=== PATIENT | female | born 1995 | race Caucasian/White ===

== ENCOUNTER → 2021-06-21 08:53 | Outpatient (CLI) | payer BC, SELFPAY ==
[2021-06-21 10:49] LABS: Add Manual Diff / Slide Review NO; Basophils Absolute Auto 0 /uL (0-100); Basophils Percent Auto 0.7 % (0-2); Eosinophils Absolute Auto 500 /uL (0-450); Eosinophils Percent Auto 6.5 % (2-4); Hematocrit 33.1 % (36-46); Hemoglobin 11.5 g/dL (12.0-16.0); Lymphocytes Absolute Auto 1900 /uL (1100-4500); Lymphocytes Percent Auto 26.7 % (25-40); Mean Corpuscular HGB Conc 34.6 % (30-36); Mean Corpuscular Hemoglobin 30.7 PG (26-34); Mean Corpuscular Volume 88.6 fL (80-100); Monocytes Absolute Auto 400 /uL (0-900); Monocytes Percent Auto 5.3 % (3-14); Neutrophils Absolute Auto 4300 /uL (1500-7000); Neutrophils Percent Auto 60.8 % (50-75); Platelet Count 195 X10^3/uL (150-400); Red Blood Cell Count 3.73 X10^6/uL (4.0-5.2); Red Cell Distribution Width 12.6 % (11.6-14.8)
[2021-06-21 20:31] LABS: Appearance Urine UA CLEAR; Bilirubin Urine UA NEGATIVE (NEGATIVE); Color Urine UA YELLOW; Glucose Urine UA NEGATIVE (Negative); Ketones Urine UA NEGATIVE (NEGATIVE); Leukocyte Esterase Urine UA NEGATIVE (NEGATIVE); Nitrite Urine UA NEGATIVE (Negative); Occult Blood Urine UA NEGATIVE (Negative); Protein Urine UA NEGATIVE (Negative); Urobilinogen Urine UA 0.2 E.U./dL (0.2)
[2021-06-22 08:13] LABS: RPR Screen Non Reactive (Non Reactive); Varicella IgG Antibody 453 index (Immune >165)
[2021-06-22 16:12] LABS: Hepatitis B Surface Antigen NEGATIVE s/c (NEGATIVE); Rubella Antibody IgG 43.9 IU/mL (>15)
[2021-06-22 16:27] LABS: HIV 1 & 2 Ab/Ag 4th Gen Combo NEGATIVE (NEGATIVE); Hep C Virus Ab w/Reflex Quant NEGATIVE s/c (NEGATIVE)
== END ==
PROVIDERS: Obstetrics & Gynecology; Referring Provider Obstetrics & Gynecology; Visit Provider Obstetrics & Gynecology
DX: Z34.91 Encounter for supervision of normal pregnancy, unspecified, first trimester (principal)
CPT/HCPCS: 36415; 80055; 81003; 86787; 86803; 86850; 86900; 86901; 87086; 87389

== ENCOUNTER → 2021-07-25 11:56 | Outpatient (CLI) | payer BC, SELFPAY ==
--- NOTE | 2021-07-25 11:57 | DI.US.S_ITS ---
PROCEDURE: US OB >= 14 WEEKS FETUS INDICATIONS: 20 Week Anatomy Scan OUTSIDE/PRIOR DATING DATA: First dating scan (date and location): 06/09/2021 Estimated date of delivery (REBA) from first dating scan: 12/04/2021 The calculations are made using the ultrasound REBA of 12/04/2021 TECHNIQUE: Real-time scanning was performed of the fetus, with image documentation and biometric measurements. COMPARISON: [facility] Ultrasound, US, US OB > 14 WEEKS FOLLOW UP, 06/09/2021, 15:02. FINDINGS: General: A single living intrauterine gestation is present. Presentation: Vertex. Placenta: Placental position is posterior. Placental edge is 1.6 cm from the internal cervical os. Amniotic fluid index: 11.9 cm, normal range is 5-24 cm. heart rate: 149 beats per minute. Maternal cervical canal: 4.0 cm long. Normal lower limit is 2.5 cm. biometrics: Biparietal diameter: 4.7 cm, 20 weeks 2 days Head circumference: 18.1 cm, 20 weeks 4 days Abdominal circumference: 14.6 cm, 19 weeks 6 days Femur length: 3.7 cm, 21 weeks 4 days Clinically estimated gestational age: 21 weeks 1 day Composite gestational age from present scan: 20 weeks 4 days Estimated weight and percentile: 369 g Anatomic survey: Neuro: Ventricles are non-dilated at less than 10 mm. Cisterna magna is normal at 3-11 mm. Cerebellum is normal in size and morphology. Nuchal skin fold: Normal at less than 6 mm between 14-21 weeks gestational age. Face: Facial profile not well visualized and there is irregularity along the midline of the upper lip and maxilla which could represent cleft lip/palate. Spine: No evidence for spina bifida. Heart: 4-chambered heart is present, with normal ventricular outflow tracts. Diaphragm: Diaphragm is intact. Stomach: Left-sided stomach is present. Kidneys: No hydronephrosis. Normal is less than 5 mm in 2nd trimester, less than 7 mm in 3rd trimester. Cord: 3-vessel cord has orthotopic insertion. Marginal cord insertion site 1.6 cm from the placental edge. Bladder: Normal in size. Extremities: All 4 extremities identified. Maternal intrauterine device is present and appears to be position within the uterine fundus and incompletely visualized. IMPRESSION: 1. Myers living intrauterine at 20 weeks 4 days based on today's ultrasound. This is concordant with the prior ultrasound. 2. Normal amniotic fluid. Low lying placenta. 3. Probable cleft upper lip. Otherwise normal anatomic survey. 4. IUD at the anterior uterine fundus. We strive to produce accurate, complete, and clear reports of imaging services. To assist us in improving patient care, this report was composed using standard report templates and voice recognition software. Therefore, it may contain abnormal punctuation, insertions and/or omissions. Occasional wrong-word or sound-alike substitutions may occur. Though we review the report and make efforts to correct it, we do recommend that the report be read carefully in proper context to recognize any text inaccuracies. Dictated by: Felix GRAJEDA Interpreted: Yana Lake MD on 07/25/2021 at 14:50 Transcribed by: SHANA on 07/26/2021 at 10:07 Approved by: Crescencio Gross M.D. on 07/26/2021 at 19:58
== END ==
PROVIDERS: Referring Provider Obstetrics & Gynecology; Visit Provider Obstetrics & Gynecology
DX: Z34.82 Encounter for supervision of other normal pregnancy, second trimester (principal); Z3A.20 20 weeks gestation of pregnancy
CPT/HCPCS: 76811

== ENCOUNTER → 2021-09-20 16:19 | Outpatient (CLI) | payer OTHER, BC, SELFPAY ==
[2021-09-20 18:00] LABS: Hematocrit 32.1 % (36-46); Hemoglobin 11.1 g/dL (12.0-16.0)
[2021-09-20 18:15] LABS: GTT (PREG) 1 Hour PP 50gm Dose 128 mg/dL (76-139)
== END ==
PROVIDERS: Referring Provider Obstetrics & Gynecology; Visit Provider Obstetrics & Gynecology
DX: Z34.82 Encounter for supervision of other normal pregnancy, second trimester (principal); Z3A.26 26 weeks gestation of pregnancy
CPT/HCPCS: 36415; 82950; 85014; 85018

== ENCOUNTER → 2021-11-16 11:51 | Outpatient (CLI) | payer OTHER, BC, SELFPAY ==
[2021-11-17 12:56] LABS: Strep Grp B PCR POS for Grp B Strep
== END ==
PROVIDERS: Visit Provider Obstetrics & Gynecology
DX: Z36.85 Encounter for antenatal screening for Streptococcus B (principal); Z3A.36 36 weeks gestation of pregnancy
CPT/HCPCS: 87653

== ENCOUNTER 2021-12-15 22:10 | Emergency (ER) | payer OTHER, BC, SELFPAY ==
[2021-12-15 22:13] VITALS: BP 131/67; PULSE 99; RESP 17; TEMP 37.2; O2SAT 98; BMI 35.0
[2021-12-15 22:56] VITALS: BP 128/70; PULSE 95; RESP 18; O2SAT 99
--- NOTE | 2021-12-15 23:31 | ED_ITS ---
HPI - General Adult General Chief complaint: Fever Stated complaint: Mastitis rt breast Time Seen by Provider: 12/15/21 22:50 Source: patient Mode of arrival: Ambulatory History of Present Illness HPI narrative: Patient is a 26-year-old female. She is 3 weeks . Is pumping breast milk for her child. She does feel like her milk is in. She is having some discomfort with pumping. Over the past 24 hours she has noticed increasing discomfort and now redness to her right breast. She is also getting some bloody discharge in the right nipple. No fevers. No left breast symptoms. Has not tried anything for the symptoms prior to arrival. Related Data Home Medications Medication Instructions Recorded Confirmed omeprazole magnesium 20 mg 20 mg PO DAILY 06/05/21 10/18/21 tablet,delayed release (Prilosec OTC) prenat.vits,fabian,[id number] 1 tab PO DAILY 06/05/21 10/18/21 Previous Rx's Medication Instructions Recorded nystatin-triamcinolone 100,000 1 applic TOPICAL BID #30 g 07/26/21 unit/g-0.1 % topical cream Double Electric Breast Pump 1 ea TOPICAL .prn #1 ea 10/18/21 fluconazole 150 mg tablet 150 mg PO Q3D #2 tab 11/16/21 (Diflucan) cephalexin 500 mg tablet 500 mg PO QID 10 Days #40 tab 12/15/21 Allergies Allergy/AdvReac Type Severity Reaction Status Date / Time No Known Drug Allergies Allergy Verified 10/18/21 16:24 Review of Systems Constitutional Constitutional: Reports as per HPI and Reports system reviewed and no additional complaints, except as documented Integumentary/Breasts Skin/Breast: Reports system reviewed and no additional complaints, except as documented Hematologic/Lymphatic On Anticoagulants: No Patient History Medical History Family History (Updated 06/05/21 @ 12:36 by Angeline Hays RN) Mother No problems noted. 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) current occupational exposures/hazards: No seatbelt use: always water heater temp set < 120 deg: Yes working smoke detector in home: Yes fire extinguisher in home: Yes carbon monox detector in home: Yes firearms in home: Yes do you feel safe at home: Yes Smoking Status: Never smoker alcohol intake: former substance use type: does not use during the past year weight has: remained stable well-balanced diet: daily or most days caffeine: Yes (200 mg only) Type(s) of exercise: regular exercise Smoking Status: Never smoker alcohol intake frequency: 0-2 drinks per day Substance Use Type: does not use Exam Initial Vital Signs Initial Vital Signs: Vital Signs Temperature 98.9 F 12/15/21 22:13 Pulse Rate 99 H 12/15/21 22:13 Respiratory Rate 17 12/15/21 22:13 Blood Pressure 131/67 12/15/21 22:13 Pulse Oximetry 98 12/15/21 22:13 Const General: cooperative and healthy appearing HENNY Head: normal to inspection and normocephalic Chest Other: Left breast is unremarkable.? Right breast does have a 5 cm x 3 cm area of redness on the anterior portion.? There is no fluctuance felt.? She does have some tenderness along the upper outer quadrant however once again no fluctuance felt.? No drainage. Resp Effort & Inspection: normal respiratory effort Skin Other: see chest section Course Orders Ordered: Discontinued Medications Acetaminophen (Acetaminophen 325 Mg Tablet) 650 mg PO NOW ONE Stop: 12/15/21 23:43 Last Admin: 12/15/21 23:45 Dose: 650 mg Documented by: MIGUE Cephalexin HCl (Cephalexin 250 Mg Capsule) 500 mg PO NOW ONE Stop: 12/15/21 23:32 Last Admin: 12/15/21 23:39 Dose: 500 mg Documented by: MIGUE Vital Signs Vital signs: Vital Signs - 8 hr 12/15/21 22:13 12/15/21 22:56 12/16/21 00:03 Temperature 98.9 F 100.5 F H Pulse Rate 99 H 95 H 108 H Respiratory Rate 17 18 17 Blood Pressure 131/67 128/70 136/78 Pulse Oximetry 98 99 98 Medical Decision Making MDM Narrative Medical decision making narrative: Patient is nontoxic appearing. She does have findings consistent with mastitis on the right. There is no abscess felt. Initially patient was afebrile not tachycardic however during her time here she did develop a low-grade fever. She continues to be nontoxic. Was given her 1st dose of antibiotics here in the ER and a prescription was sent to the pharmacy of her choice. She was given return precautions and follow-up instructions. She expressed understanding and agreement. Discharge Plan Departure Patient Disposition: Home Clinical Impression: Mastitis Instructions: DI for Mastitis Activity Restrictions/Additional Instructions: We do encourage you to continue to pump. You can feed Vinny the pumped breast milk from the right breast despite the infection and the antibiotics. Take the antibiotics as directed. They were electronically transmitted to [facility]. Return to the emergency department for any new or worsening symptoms. Prescriptions: New cephalexin 500 mg tablet 500 mg PO QID 10 Days Qty: 40 0RF No Action nystatin-triamcinolone 100,000-0.1 unit/g-% cream 1 applic topical BID Qty: 30 3RF Rx Instructions: Apply to inflamed, itchy skin BID as needed prenat.vits,fabian,[id number] Tablet 1 tab PO DAILY 0RF omeprazole magnesium [Prilosec OTC] 20 mg tablet,delayed release (DR/EC) 20 mg PO DAILY 0RF Double Electric Breast Pump 1 ea topical .prn Qty: 1 0RF Rx Instructions: Breast pump and supplies fluconazole [Diflucan] 150 mg tablet 150 mg PO Q3D Qty: 2 4RF Rx Instructions: Repeat second dose 72 hrs after first dose. Referrals: Miscellaneous,[facility] [Primary Care Provider] -
[2021-12-15] MEDS: cephALEXin 250 MG CAPSULE 500 MG PO (23:39)
[2021-12-15] MEDS: ACETAMINOPHEN 325 MG TABLET 650 MG PO (23:45)
--- NOTE | 2021-12-16 00:02 | PC.NURSE ---
Pt noted with HR>100 and temp of 100.[address] Whelan notified, orders received to give Tylenol and ok to DC home.
[2021-12-16 00:03] VITALS: BP 136/78; PULSE 108; RESP 17; TEMP 38.1; O2SAT 98
== END 2021-12-15 23:40 | disposition home or self-care (01) ==
PROVIDERS: Emergency Provider Emergency Medicine
DX: N61.0 Mastitis without abscess (principal)
CPT/HCPCS: 99283

== ENCOUNTER → 2022-01-09 08:38 | Outpatient (CLI) | payer OTHER, BC, SELFPAY ==
--- NOTE | 2022-01-09 08:39 | DI.US.S_ITS ---
PROCEDURE: US PELVIC COMPLETE INDICATIONS: MISSING IUD STRINGS TECHNIQUE: Real-time scanning was performed of the pelvic organs, with image documentation. Additional endovaginal scanning was necessary due to incomplete visualization of the adnexal and endometrial structures by transabdominal scanning. COMPARISON: None. FINDINGS: Uterus: Uterus is anteverted and mildly prominent in size at 12 x 8.5 x 6.6 cm. The myometrium is is. The endometrium measures 6 mm combined thickness. The IUD is seen at its expected location. Ovaries: The right ovary measures 4.2 x 3.3 x 1.5 cm. The left ovary is only seen transabdominally, secondary to its superior position. The left ovary measures 4.1 x 3.2 x 3.3 cm and demonstrates an anechoic focus that measures up to 3.7 cm. No abnormal vascularity can be seen. No adnexal masses are seen. Other: No pathologic free abdominal or pelvic fluid. IMPRESSION: The IUD is seen at its expected location. There is a 3.7 cm left ovarian cyst seen, which is considered to be within physiologic limits. We strive to produce accurate, complete, and clear reports of imaging services. To assist us in improving patient care, this report was composed using standard report templates and voice recognition software. Therefore, it may contain abnormal punctuation, insertions and/or omissions. Occasional wrong-word or sound-alike substitutions may occur. Though we review the report and make efforts to correct it, we do recommend that the report be read carefully in proper context to recognize any text inaccuracies. Dictated by: Richie Guzman M.D. on 01/09/2022 at 8:40 Approved by: Richie Guzman M.D. on 01/09/2022 at 8:42
== END ==
PROVIDERS: Referring Provider Obstetrics & Gynecology; Visit Provider Obstetrics & Gynecology
DX: T83.32XA Displacement of intrauterine contraceptive device, initial encounter (principal)
CPT/HCPCS: 76830; 76856